=== PATIENT | female | born 1955 | race Caucasian/White ===

== ENCOUNTER 2019-02-20 16:49 | Emergency (ER) | payer OTHER ==
[~2019-02-20] VITALS: Ht 165.1 cm; Wt 65.8 kg
[2019-02-20] MEDS ORDERED: AMOXICILLIN500 M1 PO (19:25)
[2019-02-20] MEDS ORDERED: ULTRAM 50MG TAB50 MG PO (19:25)
[2019-02-20] MEDS ORDERED: CORTISPORIN OTI10 M2 OTIC (19:25)
[2019-02-20 21:00] VITALS: BP 152/76
== END 2019-02-20 21:00 | disposition home or self-care (01) ==
LOC: ER 16:49
DX: H61.23 Impacted cerumen, bilateral (principal)

== ENCOUNTER 2019-06-11 04:13 | Emergency (ER) | payer OTHER ==
[~2019-06-11] VITALS: Ht 165.1 cm; Wt 70.3 kg
[~2019-06-11 04:13] MED LIST: ACCUNEB SO1.25 MG/1 INH; ADVAIR HFA 230M12 GM INH; ALBUTEROL2.5 MG/31 INH; AMOXICILLIN500 M1 PO; BENAZEPRIL HCL20 MG PO; CORTISPORIN OTI10 M2 OTIC; LEVAQUIN 750 M750 MG PO; PREDNISONE 20 M20 M1 PO; PROAIR HFA8.5 GM INH; PROAIR RESPICL90 MCG INH; ULTRAM 50MG TAB50 MG PO
[2019-06-11 04:14] VITALS: BP 132/77
[2019-06-11] MEDS ORDERED: PAIN RELIEVER325 MG PO (05:01)
== END 2019-06-11 05:10 | disposition home or self-care (01) ==
LOC: ER 04:13
DX: S93.401A Sprain of unspecified ligament of right ankle, initial encounter (principal); I10 Essential (primary) hypertension; J44.9 Chronic obstructive pulmonary disease, unspecified; F17.210 Nicotine dependence, cigarettes, uncomplicated; Z85.828 Personal history of other malignant neoplasm of skin; Z85.3 Personal history of malignant neoplasm of breast; Z85.41 Personal history of malignant neoplasm of cervix uteri; Z88.2 Allergy status to sulfonamides; W01.0XXA Fall on same level from slipping, tripping and stumbling without subsequent striking against object, initial encounter; Y93.89 Activity, other specified; Y92.89 Other specified places as the place of occurrence of the external cause; Y99.8 Other external cause status